=== PATIENT | female | born 2000 | race Two or more races ===

== ENCOUNTER 2022-11-09 11:23 | Emergency (ER) | payer MEDICAID, OTHER ==
[~2022-11-09] VITALS: Ht 154.9 cm; Wt 54.2 kg
[2022-11-09 14:53] VITALS: BP 115/72
[2022-11-09] MEDS ORDERED: ACET1CAP14 PO (15:15)
[2022-11-09] MEDS ORDERED: AUG875T PO (15:15)
[2022-11-09] MEDS ORDERED: IBUPROFEN 600 MG TAB PO ONE (15:15)
== END 2022-11-09 15:44 | disposition home or self-care (01) ==
LOC: ER 11:23
DX: H66.92 Otitis media, unspecified, left ear (principal); Z88.1 Allergy status to other antibiotic agents